=== PATIENT | male | born 1950 | race Caucasian/White ===

== ENCOUNTER 2018-02-09 10:11 | Emergency (ER) | payer OTHER ==
[2018-02-09 10:26] VITALS: BP 192/93
--- NOTE | 2018-02-09 10:42 | UC ---
Laceration HPI - HPI Summary HPI Summary: laceration abouve left eye (just below eye brow) from his protective glasses while playing squash - History Of Current Complaint Chief Complaint: UCLaceration Stated Complaint: CUT OVER EYE Time Seen by Provider: 02/09/18 10:20 Hx Obtained From: Patient Laceration Location: Eye - just below left eye brow Mechanism Of Injury: Blunt Trauma Onset/Duration: Sudden Onset Pain Intensity: 0 Pain Scale Used: 0-10 Numeric Aggravating Factors: Nothing - Allergies/Home Medications Allergies/Adverse Reactions: Allergies Allergy/AdvReac Type Severity Reaction Status Date / Time No Known Allergies Allergy Verified 02/09/18 10:26 Home Medications: Home Medications Indomethacin CAP* [Indocin CAP*] 25 mg PO TID PRN 02/09/18 [History Confirmed ] PMH/Surg Hx/FS Hx/Imm Hx Previously Healthy: Yes - Surgical History Surgical History: None - Family History Known Family History: Positive: None - Social History Occupation: Retired Lives: With Family Alcohol Use: None Substance Use Type: None Smoking Status (MU): Never Smoked Tobacco - Immunization History Most Recent Tetanus Shot: unknown, thinks within 5 years. Review of Systems Constitutional: Negative Skin: Negative Eyes: Negative ENT: Negative Respiratory: Negative Cardiovascular: Negative Gastrointestinal: Negative Genitourinary: Negative Motor: Negative Neurovascular: Negative Musculoskeletal: Negative Neurological: Negative Psychological: Negative Is Patient Immunocompromised?: No All Other Systems Reviewed And Are Negative: Yes Physical Exam Triage Information Reviewed: Yes Appearance: Well-Appearing, No Pain Distress, Well-Nourished Vital Signs: Initial Vital Signs Temp 98.4 F 02/09/18 10:20 Pulse 64 02/09/18 10:20 Resp 16 02/09/18 10:20 BP 192/93 02/09/18 10:20 Pulse Ox 98 02/09/18 10:20 Vital Signs Reviewed: Yes Eye Exam: Normal Eyes: Positive: Conjunctiva Clear, Other: - contusion with partial (medial side ) abrasion and superficial lacertion (lateral side) just below left eye brow ENT Exam: Normal ENT: Positive: Normal ENT inspection, Hearing grossly normal. Negative: Trismus , Muffled voice, Hoarse voice, Dental tenderness Dental Exam: Normal Neck exam: Normal Neck: Positive: Supple, Nontender Respiratory Exam: Normal Respiratory: Positive: Chest non-tender, No respiratory distress, No accessory muscle use Cardiovascular Exam: Normal Cardiovascular: Positive: RRR, Pulses Normal, Brisk Capillary Refill Musculoskeletal Exam: Normal Musculoskeletal: Positive: Strength Intact, ROM Intact, No Edema Neurological Exam: Normal Neurological: Positive: Alert, Muscle Tone Normal Psychological Exam: Normal Psychological: Positive: Normal Response To Family Skin Exam: Normal - contusion abrasion superficial laceration below left eye brow as described Laceration Repair - Laceration Repair 1 Description: Linear Laceration Size After Repair: Length (cm) - 1.5, Width (mm) - 1, Depth (mm) - 1 Modified For Repair: No Cleansing Completed Via Routine Prep: Yes Irrigation With Pressure Irrigation Device: Yes Closure Material: Skin Adhesive Laceration Course/Dx - Course/Dx Course Of Treatment: ice for contusion, skin glue instruction , hypertension information - Differential Dx - Laceration/Wound Provider Diagnoses: laceratio/abrasion below left eye brow (1.5 cm) glued, elevated blood pressure with dx of hypertension Discharge - Sign-Out/Discharge Documenting (check all that apply): Patient Departure - Discharge Plan Condition: Stable Disposition: HOME Patient Education Materials: Hypertension (ED), Skin Adhesive Care (ED), Ice Pack Application (ED), Facial Laceration (ED) Referrals: Blas Mckeon MD [Primary Care Provider] - 1 Week - Billing Disposition and Condition Condition: STABLE Disposition: Home
== END 2018-02-09 10:48 | disposition home or self-care (01) ==
LOC: UCEAST 10:11
DX: S01.81XA Laceration without foreign body of other part of head, initial encounter (principal); W26.9XXA Contact with unspecified sharp object(s), initial encounter; Y93.73 Activity, racquet and hand sports; Y92.311 Squash court as the place of occurrence of the external cause; R03.0 Elevated blood-pressure reading, without diagnosis of hypertension
CPT/HCPCS: 12011; 99211; G0463